=== PATIENT | male | born 1950 | race Caucasian/White ===

== ENCOUNTER 2024-09-26 14:10 | Outpatient (OUT) | payer MEDICARE, OTHER, SELFPAY ==
--- NOTE | 2024-09-26 09:51 | VEINCLINIC_ITS ---
Vital Signs 09/26/24 14:30 Height 5 ft 9 in BP 148/72 H BP Location Right Brachial BP Position Supine BP Cuff Size Adult BP Source Manual Cuff Respiration 22 H Pulse 74 Pulse Source Monitor Pulse Oximetry (%) 98 Oxygen Delivery Method Room Air Comment The patient's blood pressure is elevated. Varicose Veins Patient is a 74 year old male in this day as a referral from Dr. Oviedo secondary to bilateral leg pain and edema along with muscle cramping right leg greater than left leg. Patient states pain and edema has been experienced for approximately 3 years. Patient has worn bilateral leg knee high compression stockings for approximately 2 years with some relief. Patient does have issues now with stockings secondary to pain. Patient has history of varicose vein disease/treatment with Dr. Mott in [place], [place] which he had bilateral great and small saphenous EVLT along with microfoam chemical ablation bilateral leg branch saphenous varicosities. Denis Henson MD personally performed the services described in this documentation, as scribed by Rubio Seo RN in my presence and it is both accurate and complete. IRubio RN, am scribing for, and in the presence of, Dr. Denis Joyner and in the presence of the patient. thigh: bilateral (Symptoms right leg > left leg), knee: bilateral, calf: bilateral, ankle: bilateral and hutchins: bilateral aching, burning, cramping, dull and tender 6 3 years Worsened in recent months: Yes standing and walking analgesics, elevating extremities and compression stockings Reports muscle spasms of leg, fatigue, heaviness, limb pain, edema and leg edema History of lower extremity trauma: No Superficial thrombophlebitis: No Family history of varicose veins: no Has patient had previous lower extremity venous surgery: Yes Patient has previously received the following treatment(s) for lower extremity varicose veins: Reports vein ablation Does patient have a history of : not applicable Has patient had lower extremity venous scan with relux testing: No Support hose used: Yes Problems walking or doing physical activity: Yes How does it affect you: patient is now mostly wheelchair bound due to pain/edema/weakness Do you walk much: No Do you stand much: No Review of Systems ROS Narrative Denis Henson MD personally performed the services described in this documentation, as scribed by Rubio Seo RN in my presence and it is both accurate and complete. I, Rubio Seo RN, am scribing for, and in the presence of, Dr. Denis Joyner and in the presence of the patient. Status of ROS 10 or more systems reviewed and unremark able except as noted in history and below Cardiovascular Reports: edema Integumentary/Breast Reports: redness, skin pain, skin tenderness, skin swelling and changes in skin color Neurological Reports: weakness in extremities [facility]SH [facility] Medical History (Updated 09/26/24 @ 14:53 by Rubio Seo) Edema of both lower legs due to peripheral venous insufficiency ?I87.2 - Venous insufficiency (chronic) (peripheral) (ICD-10) ?R60.0 - Localized edema (ICD-10) Bilateral carpal tunnel syndrome ?G56.03 - Carpal tunnel syndrome, bilateral upper limbs (ICD-10) Bilateral iliac artery stenosis ?I77.1 - Stricture of artery (ICD-10) Right knee pain ?M25.561 - Pain in right knee (ICD-10) Hypertension ?I10 - Essential (primary) hypertension (ICD-10) Phlebitis and thrombophlebitis of superficial vessels of lower extremities, bilateral ?I80.03 - Phlebitis and thrombophlebitis of superficial vessels of lower extremities, bilateral (ICD-10) Back pain ?M54.9 - Dorsalgia, unspecified (ICD-10) Bilateral leg edema ?R60.0 - Localized edema (ICD-10) Toe pain, chronic ?M79.676 - Pain in unspecified toe(s) (ICD-10) ?G89.29 - Other chronic pain (ICD-10) Onychomycosis ?B35.1 - Tinea unguium (ICD-10) Chronic venous insufficiency ?I87.2 - Venous insufficiency (chronic) (peripheral) (ICD-10) Varicose veins of bilateral lower extremities with pain ?I83.813 - Varicose veins of bilateral lower extremities with pain (ICD-10) Surgical History (Updated 09/26/24 @ 15:34 by Rubio Seo) S/P sclerotherapy of varicose veins ?Z98.890 - Other specified postprocedural states (ICD-10) ?Z86.79 - Personal history of other diseases of the circulatory system (ICD- 10) Status post laser ablation of incompetent vein ?Z98.890 - Other specified postprocedural states (ICD-10) H/O neck surgery ?Z98.890 - Other specified postprocedural states (ICD-10) Previous back surgery ?Z98.890 - Other specified postprocedural states (ICD-10) Family History (Updated 09/26/24 @ 14:54 by Rubio Seo) Other Family history of cancer Family history of hypertension Family history of stroke Social History (Updated 09/26/24 @ 14:55 by Rubio Seo) Within the past year, how often did you have a drink containing alcohol: 2-3 times a week Smoking status: Former smoker Non-prescribed substance use: denies use Meds Home Medications and Allergies Home Medications ?Medication ?Instructions ?Recorded ?Confirmed ?Type acetaminophen 650 mg 650 mg PO Q8H PRN pain 09/26/24 09/26/24 History tablet,extended release (8 Hour Pain Reliever) apixaban 2.5 mg tablet (Eliquis) 2.5 mg PO BID 09/26/24 09/26/24 History dexamethasone 4 mg tablet 4 mg PO DAILY 09/26/24 09/26/24 History esomeprazole magnesium 40 mg 40 mg PO DAILY 09/26/24 09/26/24 History capsule,delayed release (Nexium) losartan 50 mg tablet (Cozaar) 50 mg PO DAILY 09/26/24 09/26/24 History triamcinolone acetonide 0.5 % 1 applic topical BID 09/26/24 09/26/24 History topical cream (Triderm) Allergies Allergy/AdvReac Type Severity Reaction Status Date / Time No Known Drug Allergies Allergy Verified 09/26/24 13:47 Exam Narrative Exam Narrative: dorsalis pedis pulse weak right leg in comparison to left leg Denis Henson MD personally performed the services described in this documentation, as scribed by Rubio Seo RN in my presence and it is both accurate and complete. IRubio RN, am scribing for, and in the presence of, Dr. Denis Joyner and in the presence of the patient. Constitutional Documenting provider has reviewed patient's vital signs: yes Common normals: oriented x3 Nutritional appearance: overweight Cardio Peripheral pulses: posterior tibial pulses present and dorsalis pedis pulses present Extremity Common normals: normal capillary refill General: calf tenderness and edema Right lower extremity: lower leg Right lower leg: inspection and palpation Left lower extremity: lower leg Left lower leg: inspection and palpation Neuro Common normals: oriented x3 Results Imaging Venous US: Radiologist's impression: Bilateral leg reflux u/s reveals no varicose vein disease. Denis Henson MD personally performed the services described in this documentation, as scribed by Rubio Seo RN in my presence and it is both accurate and complete. Rubio Henson RN, am scribing for, and in the presence of, Dr. Denis Joyner and in the presence of the patient. Assessment and Plan Assessment and Plan (1) Varicose veins of bilateral lower extremities with pain: Plan Patient to continue use of bilateral leg knee high compression stockings, rest, and elevation. Refer to lymphedema clinic. Denis Henson MD personally performed the services described in this documentation, as scribed by Rubio Seo RN in my presence and it is both accurate and complete. Rubio Henson RN, am scribing for, and in the presence of, Dr. Denis Joyner and in the presence of the patient.
--- NOTE | 2024-09-26 13:51 | W.VEIN ---
Discharge Plan Discharge Disposition: Home, Self-Care Plan of Treatment: refer to lymphedema clinic Print Language: Upper Sorbian Discharge Date/Time: 09/26/24 15:55
--- NOTE | 2024-09-26 14:17 | VEIN_ITS ---
Patient Name: YARIEL ALVARADO MR#: [id number] : 1950 Exam Date: 09/26/2024 Ordering Doctor: DR ASHLIE DESOUZA M.D. RADIOLOGY REPORT PROCEDURE: FACILITY [facility] - OFFICE VISIT INITIAL COMPARISON: None. PROGRESS NOTES: [age] year old male who presents with a 3 year history of marked swelling of lower right leg and skin changes. The patient's right leg symptoms are worse than the left. There has been a progression of symptoms over time. This increases with prolonged dependency. The patient describes an improvement with rest and elevation. The patient denies any signs and symptoms to suggest arterial ischemia. The patient describes a family history of hypertension, stroke, and cancer. The patient has drinking and smoking history of occasional alcohol consumption; former smoker.. Patient has a past medical history significant for varicose vein treatment, neck surgery, back surgery. The patient denies a history of deep venous thrombus or pulmonary embolus. See separate history and physical for medication list. Prior extensive treatment for varicose veins. Intermittent use of compression stockings. After review of nurse notes, history and physical exam I discussed at length the pathophysiology of venous hypertension and possible treatments, therapies and strategies available. We discussed at length the importance of elevating the lower extremities above the level of the heart, increased physical activity and compression stocking use. Ultrasound venous reflux study performed today was discussed at length with the patient. The report demonstrates prior closure of the great saphenous veins bilaterally, small saphenous veins bilaterally, left anterior accessory saphenous vein, and closure of multiple branch saphenous varicosities bilaterally.. PHYSICAL EXAM: The right leg demonstrates no significant varicosities, scattered spider veins, no ulceration, marked edema, mild skin discoloration. The left leg demonstrates no significant varicosities, scattered spider veins, no ulceration, mild edema, no skin discoloration. Both thighs, legs and feet were symmetrically warm to the touch. Good posterior tibial and dorsalis pedis pulses were present bilaterally. VEIN/ Facility [facility] Comprehensive IMPRESSION: 1. No significant venous insufficiency secondary to prior treatment 2. No significant lower extremity varicose veins secondary to prior treatment 3. Marked right lower extremity subcutaneous edema 4. No flow significant arterial disease 5. CEAP: C3, DP, AN, PN PLAN: 1. Continued use of compression stockings 2. Elevated legs and increased physical activity symptomatic relief 3. Referral to lymphedema clinic Nurse notes, history and physical were reviewed and confirmed, see attached forms. The nurse was present throughout the physical exam and consultation Dictated by: Denis Joyner M.D. on 09/26/2024 at 16:07 Approved by: Denis Joyner M.D. on 09/26/2024 at 16:13
--- NOTE | 2024-09-26 14:17 | VEIN_ITS ---
Patient Name: YARIEL ALVARADO MR#: [id number] : 1950 Exam Date: 09/26/2024 Ordering Doctor: DR ASHLIE DESOUZA M.D. RADIOLOGY REPORT PROCEDURE: VC EXT VENOUS REFLUX NATHEN LMTD COMPARISON: None. INDICATIONS: Pain due to varicose veins of bilateral legs I83.813 TECHNIQUE: Duplex imaging of the lower extremity to assess the deep and superficial venous system for the presence of deep or superficial venous incompetence and to document the location and severity of disease. The study includes evaluation of the great saphenous vein (GSV), anterior accessory saphenous vein (AASV) and small saphenous vein (SSV). Patient scanned in reverse Trendelenburg and standing. FINDINGS: RIGHT LOWER EXTREMITY: Saphenofemoral Junction Reflux: Yes 5.1mm 1.1 sec GSV: Diam (mm) Reflux/ Time (sec) Proximal Thigh N/A Mid Thigh N/A Distal Thigh 0.9 No Prox Calf 1.2 No Mid Calf 2.0 No Saphenopopliteal Junction Reflux: 1.8mm No SSV: Proximal Calf 1.3 No Mid Calf 1.3 No AASV: Proximal Thigh 1.8 Yes 0.5 Mid Thigh 2.1 No Distal Thigh Thrombi: No acute or chronic thrombus visualized Compressibility: Normal Flow: Normal Preforator: Dist/med calf 2.0mm with 0s reflux. Mid/med calf 2.5mm with 0s reflux. Tech Note: Patent venous stent visualized in femoral vein. GSV is discontinuous from SFJ to distal thigh. Right GSV and SSV treated with EVLT of Dr. Smiley <2 years ago. Patent varicose vein dist/med calf 1.6mm with 0s reflux. LEFT LOWER EXTREMITY: Saphenofemoral Junction Reflux: Yes 6.5 mm 1.7 sec GSV: Diam (mm) Reflux/Time (sec) Proximal Thigh N/A Mid Thigh N/A Distal Thigh 2.1 No Prox Calf 1.9 No Mid Calf 2.5 Yes 0.6 Saphenopopliteal Junction Relux: 2.0 mm Yes 0.6 SSV: Proximal Calf 1.5 No Mid Calf 2.2 No AASV: Not present Proximal Thigh Mid Thigh Distal Thigh Thrombi: No acute or chronic thrombus visualized. Compressibility: Flow: 1.6cm reflux visualized in CFV. 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 Tech Note: No compressible varicose vein visualized at mid/med calf. Left GSV and SSV treated with EVLT of Dr. Smiley <2 years ago.Possibly previously treated. Patent varicose vein prox/med calf 2.8mm with 1.6s reflux. CONCLUSION: 1. Prior closure of bilateral great saphenous veins, bilateral small saphenous veins, and left anterior accessory saphenous vein. 2. Prior closure of multiple branch saphenous varicosities bilaterally via microfoam chemical ablation. 3. No appreciable veins in need of treatment at this time. Dictated by: Denis Joyner M.D. on 09/26/2024 at 15:40 Approved by: Denis Joyner M.D. on 09/26/2024 at 16:07
[2024-09-26 14:30] VITALS: BP 148/72; PULSE 74; O2SAT 98
--- NOTE | 2024-09-26 15:54 | W.VEIN ---
Discharge Plan Discharge Disposition: Home, Self-Care Plan of Treatment: refer to lymphedema clinic Print Language: Slovenian Discharge Date/Time: 09/26/24 15:55
== END 2024-09-26 15:55 | disposition home or self-care (01) ==
PROVIDERS: PCP Podiatrist Foot & Ankle Surgery; Visit Provider Radiology Diagnostic Radiology
DX: I83.813 Varicose veins of bilateral lower extremities with pain (principal)
CPT/HCPCS: 93970; G0463